=== PATIENT | female | born 1955 | race Caucasian/White ===

== ENCOUNTER 2018-01-22 06:31 | Day surgery (SDC) | payer OTHER ==
[2018-01-17 09:26] LABS: Absolute Lymphocytes (CBC) 1.7 K/uL (0.7-4.9); Absolute Monocytes 0.6 K/uL (0.1-1.3); Absolute Neutrophil 3.2 K/uL (1.8-8.0); Basophils % 1.3 % (0-1.3); Eosinophils % 4.9 % (0-4.4); Hematocrit 38.7 % (36.0-45.0); Lymphocytes % 29.1 % (15.3-44.8); MCH 31.5 pg (27.0-35.0); MCV 89.4 fL (80-100); MPV 7.9 fL (7.6-11.3); Monocytes % 9.7 % (3.3-12.3); RBC Red Blood Cell Count 4.33 M/uL (3.86-4.86)
[2018-01-17 09:28] LABS: Protime INR 0.96
[2018-01-17 09:38] LABS: BUN Blood Urea Nitrogen 14 mg/dL (7-18); Bicarbonate 29 mmol/L (21-32); Glucose Level 85 mg/dL (74-106); Potassium 3.9 mmol/L (3.5-5.1); Sodium Level 141 mmol/L (136-145)
--- NOTE | 2018-01-17 18:51 | EKG ---
Test Date: 2018-01-17 Test Time: 08:45:11 Eligibility Manager: LUIS MEASUREMENT RESULTS: Intervals: Rate: 58 WI: 178 QRSD: 80 QT: 422 QTc: 414 [place]: P: 58 WI: 178 QRS: 46 T: 71 INTERPRETIVE STATEMENTS: Sinus bradycardia Otherwise normal ECG Compared to ECG 10/04/2016 15:31:49 Sinus arrhythmia no longer present Electronically Signed On 01-17-18 18:47:36 CDT by Jonny Madden
[2018-01-22] MEDS ORDERED: CEFAZOLIN/SWI 1gm 1 GM/10 ML SYR ONE (07:02)
[2018-01-22] MEDS ORDERED: Ringers Lactate 1,000 ML IV ONE (07:02)
[2018-01-22] MEDS ORDERED: FENTANYL CITR 100 MCG/2 ML ONE ×2 (07:11→09:22)
[2018-01-22] MEDS ORDERED: PROPOFOL 200 MG/20 ML VIAL IV ONE (07:11)
[2018-01-22] MEDS ORDERED: LIDOCAINE 2% MPF 5 ML VIAL ONE ×2 (07:11→08:07)
[2018-01-22] MEDS ORDERED: MIDAZOLAM HCL 2 MG/2 ML INJ ONE (07:11)
[2018-01-22] MEDS: BUPIVACAINE 0.25% PF 10 ML VIAL ONE ×2 (08:07→08:32)
[2018-01-22] MEDS ORDERED: KETOROLAC 30 MG/ML INJ ONE (08:34)
[2018-01-22] MEDS ORDERED: GLYCOPYRROLATE 0.2 MG/ML SYR ONE (08:36)
--- NOTE | 2018-01-22 08:56 | P.BOP ---
Preoperative diagnosis: right knee medial meniscus tear, right knee osteoarthritis Postoperative diagnosis: same, right knee lateral meniscus tear Primary procedure: right knee arthroscopic partial medial and lateral meniscectomies Secondary procedure: right knee arthroscopic chondroplasty patellofemoral joint Intake Manager: NONE,NONE Estimated blood loss: < 5 cc Specimen: none Findings: see dictation Anesthesia: General Complications: None Implants: none Fluids & blood products: per anesthesia; TT: 33 mins @ 300 mmHg Transferred to: Recovery Room Condition: Good
[2018-01-22] MEDS ORDERED: MEPERIDINE HCL 50 MG/ML AMP ONE (09:10)
[2018-01-22] MEDS ORDERED: ONDANSETRON 4 MG/2 ML VIAL ONE (09:11)
[2018-01-22] MEDS ORDERED: METOCLOPRAMIDE 10 MG/2mL INJ ONE (09:11)
[2018-01-22] MEDS ORDERED: HYDROCODONE/APAP 7.5/325 MG TAB ONE (10:10)
--- NOTE | 2018-01-22 15:36 | OP ---
Date of Procedure: 01/20/2018 Surgeon: Joao Dyson MD Preoperative Diagnoses: 1.Right knee medial meniscus tear. 2.Right knee osteoarthritis. Postoperative Diagnoses: 1.Right knee medial meniscus tear. 2.Right knee osteoarthritis. 3.Right knee lateral meniscus tear. Procedure Performed: 1.Right knee arthroscopic partial medial and lateral meniscectomy. 2.Right knee arthroscopic chondroplasty, patellofemoral joint. Anesthesia: General LMA. Fluids: Per Anesthesia record. Estimated Blood Loss: Less than 5 cc. Tourniquet Time: 33 minutes, 300 mmHg. Complications: None. Implants: None. Indication For Procedure: Ania is a 62-year-old female, who presented to my clinic with signs and symptoms consistent with medial meniscus tear and right knee osteoarthritis. The patient failed con servative treatment measures including physical therapy, corticosteroid injection as well as viscosup plementation injection. She continued to have pain and mechanical symptoms. Discussed with the bianka ent at length the risks and benefits associated with operative and nonoperative treatment. She expre ssed understanding and elected to proceed with operative treatment. Description Of Procedure: After informed consent was obtained, the patient was identified in the pre operative holding area. The right lower extremity was marked. The patient was then taken back to e operating room, transferred to the operating table in the supine fashion, placed under general LMA anesthesia. The right lower extremity was examined. The patient had full range of motion of her rig ht lower extremity and was stable to varus and valgus, Bro, posterior drawer stresses. The right lower extremity was then prepped and draped in usual sterile fashion. A time-out was initiated. [facility] correct patient and procedure were confirmed and identified. The patient received preoperative pro phylactic antibiotics. The right lower extremity was then exsanguinated with an Esmarch. The tourni quet was inflated to 300 mmHg. Standard anteromedial and anterolateral portals were created and diag nostic arthroscopy was performed. The arthroscope was first brought into the patellofemoral joint, w here the patient was noted to have grade 4 chondromalacia changes of the medial aspect of the trochle ar groove as well as the medial facet of the patella. There were some loose chondral flaps and a cho ndroplasty was performed using an arthroscopic shaver to smooth chondral edges. The arthroscope was then brought into the medial compartment, where the patient was noted to have some grade 4 changes of the medial tibial plateau just right above the anterior aspect of the medial meniscus. There was no lydia to be a complex medial meniscus tear at the medial meniscus body. Partial medial meniscectomy wa s performed using meniscal biters and arthroscopic shaver to smooth meniscal borders. The arthroscop e was then brought into the intercondylar notch , where the patient was noted to have intact ACL and PCL, which were stable to probe. The arthroscope was then brought into the lateral compartment, wher e the patient was noted to have some fraying and a small tear of the lateral meniscus body. Using ar throscopic shaver, partial lateral meniscectomy was performed to smooth meniscal borders. There were some grade 2 chondromalacia changes of the lateral tibial plateau and lateral femoral condyle. The arthroscope was then removed and instruments were removed without complication. The portals were irr igated with normal saline and approximated using a 3-0 Monocryl. Sterile dressings were applied. To urniquet was let down and the patient was awakened and transferred to PACU in stable condition. Postoperative Plan: Ms. Humphries will follow up clinic next week for wound check and will begin physical therapy per post meniscectomy protocol. MELI/MODL Voice ID: [id number] Report ID: [id number]
== END 2018-01-22 11:05 | disposition home or self-care (01) ==
LOC: OR 06:31
PROVIDERS: ATTEND Orthopaedic Surgery Sports Medicine
PROC: 0SBC4ZZ Excision of Right Knee Joint, Percutaneous Endoscopic Approach (ICD-10-PCS; 2018-01-22)
PROC: 0SBC4ZZ Excision of Right Knee Joint, Percutaneous Endoscopic Approach (ICD-10-PCS; 2018-01-22)
PROC: 0SBC4ZZ Excision of Right Knee Joint, Percutaneous Endoscopic Approach (ICD-10-PCS; 2018-01-22)
PROC: 0SBC4ZZ Excision of Right Knee Joint, Percutaneous Endoscopic Approach (ICD-10-PCS; principal; 2018-01-22 07:30)
DX: S83.231A Complex tear of medial meniscus, current injury, right knee, initial encounter (principal); M17.11 Unilateral primary osteoarthritis, right knee; X58.XXXA Exposure to other specified factors, initial encounter; Y93.9 Activity, unspecified; Y92.9 Unspecified place or not applicable
CPT/HCPCS: 36415; 80048; 85025; 85610; 85730; 93005; J0690; J2175; J2250; J2405; J2765; J3010

== ENCOUNTER 2018-12-24 06:03 | Inpatient (IN) | payer BC ==
[2018-12-17 14:52] LABS: Absolute Lymphocytes (CBC) 2.2 K/uL (0.7-4.9); Basophils % 0.9 % (0-1.3); Eosinophils % 3.2 % (0-4.4); Hematocrit 37.8 % (36.0-45.0); Lymphocytes % 29.9 % (15.3-44.8); MPV 8.1 fL (7.6-11.3); Monocytes % 8.9 % (3.3-12.3); RBC Red Blood Cell Count 4.15 M/uL (3.86-4.86)
[2018-12-17 15:02] LABS: Bilirubin Total 0.2 mg/dL (0.2-1.0); Potassium 3.4 mmol/L (3.5-5.1); Protein, Total 7.1 g/dL (6.4-8.2)
--- NOTE | 2018-12-17 16:22 | EKG ---
Test Date: 2018-12-17 Test Time: 13:22:39 Gateman: LUIS MEASUREMENT RESULTS: Intervals: Rate: 59 HI: 164 QRSD: 74 QT: 432 QTc: 427 [place]: P: 58 HI: 164 QRS: 55 T: 64 INTERPRETIVE STATEMENTS: Sinus bradycardia Otherwise normal ECG Compared to ECG 01/17/2018 08:45:11 No significant changes Electronically Signed On 12-17-18 16:21:24 CDT by Tomi Payne
--- OUTSIDE RECORDS SUMMARY | 2018-12-24 06:07 | XMS REPORT ---
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 unspecified upper limb, including shoulder Problem Primary osteoarthritis of right M17.11 Active knee Assessment Complex tear of medial meniscus of S83.231A Active right knee as current injury, initial encounter Assessment Acute pain of right knee M25.561 Active Assessment Primary osteoarthritis of right M17.11 Active knee Medications Medication Code System Code Instructions Start Date End Date Status Dosage ZyrTEC [facility] 72625752228 10 MG Orally Once Active 1 tablet a day Xanax [facility] 34639370396 0.25 MG Orally Active 1 tablet Twice a day Results No Known Results Summary Purpose eClinicalWorks Submission
--- OUTSIDE RECORDS SUMMARY | 2018-12-24 06:07 | XMS REPORT ---
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 unspecified upper limb, including shoulder Problem Primary osteoarthritis of right M17.11 Active knee Assessment Primary osteoarthritis of right M17.11 Active knee Assessment Other tear of medial meniscus, S83.241A Active current injury, right knee, initial encounter Assessment Acute pain of right knee M25.561 Active Medications Medication Code Code Instructions Start End Status Dosage System Date Date [facility] 8[facility] 10 MG Orally Active 1 tablet Once a day Hydrocodone-Ac [facility] [address]-26 7.5-750 MG Active as directed etaminophen Orally Tramadol HCl [facility] 53031297837 50 MG Orally January 27, Feb 06, Active 1 tablet as every 6 hrs 2017 2018 needed Xanax [facility] 73509154327 0.25 MG Orally Active 1 tablet Twice a day Results No Known Results Summary Purpose eClinicalWorks Submission
--- OUTSIDE RECORDS SUMMARY | 2018-12-24 06:08 | XMS REPORT ---
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
--- OUTSIDE RECORDS SUMMARY | 2018-12-24 06:08 | XMS REPORT ---
:1955 Author Organization eClinicalWorks Care Team Providers Name Role Phone Joao Dyson Provider Role Unavailable Allergies, Adverse Reactions, Alerts Substance Reaction Event Type MORPHINE Info Not Available Drug Allergy Clarithromycin Info Not Available Drug Allergy Biaxin Info Not Available Drug Allergy Problems Problem Type Condition Code Onset Dates Condition Status Assessment Other tear of medial meniscus, S83.241D Active current injury, right knee, subsequent encounter Assessment Acute pain of right knee M25.561 Active Assessment Patellar tendinitis of right knee M76.51 Active Assessment Primary osteoarthritis of right M17.11 Active knee Problem Acute pain of right knee M25.561 Active Problem Patellar tendinitis of right knee M76.51 Active Problem Other tear of medial meniscus, S83.241D Active current injury, right knee, subsequent encounter Problem Other benign neoplasm of skin of D23.60 Active unspecified upper limb, including shoulder Problem Primary osteoarthritis of right M17.11 Active knee Problem Skin lesion of back L98.9 Active Medications Medication Code Code Instructions Start End Status Dosage System Date Date Ebonien [facility] 11812840328 1 % Transdermal Mar 18, apply small qid 2018 amount to affected joint Valtrex [facility] 03614541492 500 MG Orally Active 1 tablet Once a day ZyrTEC [facility] 99769627571 10 MG Orally Active 1 tablet Once a day Xanax [facility] 00700251636 0.25 MG Orally Active 1 tablet Twice a day Hydrocodone-Ac [facility] [address]-46 7.5-750 MG Active as directed etaminophen Orally Results No Known Results Summary Purpose eClinicalWorks Submission
--- OUTSIDE RECORDS SUMMARY | 2018-12-24 06:08 | XMS REPORT ---
:1955 Author Organization eClinicalWorks Care Team Providers Name Role Phone Joao Dyson Provider Role Unavailable Allergies No Known Allergies [...] of back L98.9 Active Medications Medication Code System Code Instructions Start End Date Status Dosage Date Hilliard [facility] 94209268366 7.5-325 MG Orally December 16December 26, Active 1 tablet every 6 hrs 2018 2018 as needed Xarelto [facility] 69918543286 10 MG Orally Once December 16, Active 1 tablet a day 2018 with food Results No Known Results Summary Purpose eClinicalWorks Submission
--- OUTSIDE RECORDS SUMMARY | 2018-12-24 06:08 | XMS REPORT ---
:1955 Author Organization eClinicalWorks Care Team Providers Name Role Phone Joao Dyson Provider Role Unavailable Allergies, Adverse Reactions, Alerts Substance Reaction Event Type MORPHINE Info Not Available Drug Allergy Clarithromycin Info Not Available Drug Allergy Biaxin Info Not Available Drug Allergy Problems Problem Type Condition Code Onset Dates Condition Status Assessment Primary osteoarthritis of right M17.11 Active [...] Start End Status Dosage System Date Date Hydrocodone-Ac [facility] [address]-22 7.5-750 MG Active as directed etaminophen Orally Voltaren [facility] 45120723487 1 % Transdermal Mar 18, apply small qid 2018 amount to affected joint ZyrTEC [facility] 05241675857 10 MG Orally Active 1 tablet Once a day Xanax [facility] 87183092469 0.25 MG Orally Active 1 tablet Twice a day Valtrex [facility] 53616288649 500 MG Orally Active 1 tablet Once a day Results No Known Results Summary Purpose eClinicalWorks Submission
--- OUTSIDE RECORDS SUMMARY | 2018-12-24 06:08 | XMS REPORT ---
[...] osteoarthritis of right M17.11 Active knee Assessment Patellar tendinitis of right knee M76.51 Active Assessment Other tear of medial meniscus, S83.241D Active current injury, right knee, subsequent encounter Assessment Acute pain of right knee M25.561 Active Medications Medication Code Code Instructions Start End Status Dosage System Date Date Valtrex [facility] 64432933428 500 MG Orally Active 1 tablet Once a day ZyrTEC [facility] 51710163951 10 MG Orally Active 1 tablet Once a day Hydrocodone-Ac [facility] [address]-71 7.5-750 MG Active as directed etaminophen Orally Xanax [facility] 38809153949 0.25 MG Orally Active 1 tablet Twice a day Results No Known Results Summary Purpose eClinicalWorks Submission
--- OUTSIDE RECORDS SUMMARY | 2018-12-24 06:08 | XMS REPORT ---
[...] osteoarthritis of right M17.11 Active knee Assessment Arthritis of knee, right M17.11 Active Assessment Other tear of medial meniscus, S83.241A Active current injury, right knee, initial encounter Assessment Acute pain of right knee M25.561 Active Medications Medication Code Code Instructions Start End Status Dosage System Date Date ZyrTEC [facility] 68558659038 10 MG Orally Active 1 tablet Once a day Hydrocodone-Ac [facility] [address]-76 7.5-750 MG Active as directed etaminophen Orally Xanax [facility] 65988077999 0.25 MG Orally Active 1 tablet Twice a day Valtrex [facility] 80623658923 500 MG Orally Active 1 tablet Once a day Results No Known Results Summary Purpose eClinicalWorks Submission
--- OUTSIDE RECORDS SUMMARY | 2018-12-24 06:08 | XMS REPORT ---
:1955 Author Organization eClinicalWorks Care Team Providers Name Role Phone Joao Dyson Provider Role Unavailable Allergies, Adverse Reactions, Alerts Substance Reaction Event Type MORPHINE Info Not Available Drug Allergy Clarithromycin Info Not Available Drug Allergy Biaxin Info Not Available Drug Allergy Problems Problem Type Condition Code Onset Dates Condition Status Assessment Pain in joint of right knee M25.561 Active Assessment Primary [...] Medications Medication Code Code Instructions Start End Date Status Dosage System Date ZyrTEC [facility] 50689872736 10 MG Orally Active 1 tablet Once a day Voltaren [facility] 35060580472 1 % Transdermal Mar 18, apply small qid 2018 amount to affected joint Xanax [facility] 93986661694 0.25 MG Orally Active 1 tablet Twice a day Valtrex [facility] 04459743734 500 MG Orally Active 1 tablet Once a day Results No Known Results Summary Purpose eClinicalWorks Submission
--- OUTSIDE RECORDS SUMMARY | 2018-12-24 06:08 | XMS REPORT ---
:1955 Author Organization eClinicalWorks Care Team Providers Name Role Phone Joao Dyson Provider Role Unavailable Allergies No Known Allergies Problems Problem Type Condition Code Onset Dates Condition Status Problem Skin lesion of back L98.9 Active Problem Other benign neoplasm of skin of D23.60 Active unspecified upper limb, including shoulder Problem Primary osteoarthritis of right knee M17.11 Active Medications Medication Code Code Instructions Start End Date Status Dosage System Date [facility] 19057999771 1 % Transdermal Mar 18 apply small qid 2018 amount to affected joint Results No Known Results Summary Purpose eClinicalWorks Submission
--- OUTSIDE RECORDS SUMMARY | 2018-12-24 06:08 | XMS REPORT ---
[...] Instructions Start End Date Status Dosage Date Valtrex ND 55777974684 500 MG Orally Active 1 tablet Once a day ZyrTEC ND 09809863050 10 MG Orally Active 1 tablet Once a day Zoloft [place] 0 Active not defined Results No Known Results Summary Purpose eClinicalWorks Submission
--- OUTSIDE RECORDS SUMMARY | 2018-12-24 06:08 | XMS REPORT ---
[...] Start End Date Status Dosage System Date Xanax [facility] 79694515550 0.25 MG Orally Active 1 tablet Twice a day Voltaren [facility] 16986218646 1 % Transdermal Mar 18, Active apply small qid 2018 amount to affected joint Valtrex [facility] 76059385933 500 MG Orally Active 1 tablet Once a day ZyrTEC [facility] 55572654606 10 MG Orally Active 1 tablet Once a day Results No Known Results Summary Purpose eClinicalWorks Submission
[2018-12-24] MEDS ORDERED: CEFAZOLIN/SWI 2gm 2 GM/20 ML SYR ONE (06:30)
[2018-12-24] MEDS ORDERED: Ringers Lactate 1,000 ML IV ONE ×3 (06:30→07:10)
[2018-12-24 06:52] LABS: Protime INR 0.98
[2018-12-24] MEDS ORDERED: FENTANYL CITR 250 MCG/5 ML ONE (07:13)
[2018-12-24] MEDS ORDERED: MIDAZOLAM HCL 2 MG/2 ML INJ ONE (07:13)
[2018-12-24] MEDS ORDERED: LIDOCAINE 2% MPF 5 ML VIAL ONE (07:13)
[2018-12-24] MEDS ORDERED: PROPOFOL 200 MG/20 ML VIAL IV ONE (07:13)
[2018-12-24] MEDS ORDERED: DEXAMETHASONE 4 MG/ML VIAL ONE (07:18)
[2018-12-24] MEDS ORDERED: ROPLVACAINE HCL 20 ML ONE (07:18)
[2018-12-24] MEDS ORDERED: EPINEPHRINE/PF 1 MG/ML AMP ONE (07:18)
[2018-12-24] MEDS ORDERED: TRANEXAMIC ACID 1,000 MG in NA CHLORIDE 0.9% 50 ML IV ONE (08:00)
[2018-12-24] MEDS: BUPIVACA 0.5%/EPI 0.0005%/PF 30 ML VIAL ONE ×2 (08:31→09:35)
[2018-12-24] MEDS ORDERED: KETOROLAC 30 MG/ML INJ ONE (09:57)
[2018-12-24] MEDS ORDERED: ALPRAZOLAM 0.25 MG TABLET PO PRN (10:33)
[2018-12-24] MEDS ORDERED: DOCUSATE NA 100 MG CAP PO PRN (10:36)
[2018-12-24] MEDS ORDERED: ONDANSETRON 4 MG/2 ML VIAL IV PRN (10:36)
[2018-12-24] MEDS: FENTANYL CITR 100 MCG/2 ML ONE ×2 (11:04→11:25)
--- NOTE | 2018-12-24 11:37 | RAD REPORT ---
EXAM DESCRIPTION: RAD - Knee Right 2 View - 12/24/2018 11:27 am CLINICAL HISTORY: Right knee surgery FINDINGS: Postsurgical changes of a right knee arthroplasty. Prosthesis is in good position No fracture or dislocation
[2018-12-24 11:43] LABS: Hematocrit 40.2 % (36.0-45.0)
[2018-12-24] MEDS: HYDROMORPHONE HCL 0.5 MG/0.5 ML INJ IV PRN (12:29)
--- NOTE | 2018-12-24 13:57 | P.BOP ---
Preoperative diagnosis: right knee osteoarthritis Postoperative diagnosis: same Primary procedure: right total knee arthroplasty Physician Primary Care Sports Medicine: NONE,NONE Estimated blood loss: 20 cc Specimen: right knee bone remnants Findings: see dictation Anesthesia: General Complications: None Drain(s): Urinary catheter Implants: Pili Persona, 7 Narrow CR femur, D tibia, 10 CR poly, 32 patella Fluids & blood products: per anesthesia record; TT: 95 mins @ 300 mmHg Transferred to: Recovery Room Condition: Good
[2018-12-24] MEDS: HYDROCODONE/APAP 7.5/325 MG TAB PO PRN ×2 (14:56→20:12)
[2018-12-24] MEDS: CEFAZOLIN/SWI 2gm 2 GM/20 ML SYR IV SCH (16:28)
[2018-12-24] MEDS: TRAMADOL HCL 50 MG TAB PO PRN ×2 (17:53→23:55)
--- NOTE | 2018-12-24 22:06 | P.OP ---
Preoperative diagnosis: right knee osteoarthritis Postoperative diagnosis: same Primary procedure: right total knee arthroplasty Anesthesia: general Estimated blood loss: 20 cc Specimen: right knee bone remnants Findings: see dictation Operative Technique: Indication For Procedure: Ania is a 63-year-old female, who presented to my clinic with right knee pain due to right knee osteoarthritis. The patient failed conservative treatment measures including home exercises, corticosteroid injections and viscosupplementation injections. She reported continued pain that affect her activities of daily living. She was recommended for total knee arthoplasty. Description Of Procedure: After informed consent was obtained, the patient was identified in preop holding area. The right lower extremity was marked. The patient underwent a femoral nerve block performed by Anesthesia. She was then taken back to the operative room and transferred to the operating table in supine fashion and placed under general anesthesia. The right lower extremity was then prepped and draped in usual sterile fashion. A time-out was initiated. Correct patient and procedure were confirmed and identified. The patient had received preoperative prophylactic antibiotics. The right lower extremity was exsanguinated and the tourniquet was inflated to 300 mmHg. Approximately, a 20 cm longitudinal incision was made over the anterior aspect of the knee centered over the patella. A standard median parapatellar approach was taken. The dissection was taken to the extensor mechanism. A median parapatellar arthrotomy was then performed. The patella was then everted and the fat pad and medial and lateral meniscus were excised. A lateral release was performed of the patella and osteophytes were removed using a rongeur. There was significant cartilage wear on the undersurface of the patella and it was decided to resurface the patella. Next, attention was taken to the femur, retractors were placed within the knee and the knee was held in flexion. A partial synovectomy was performed over the anterior aspect of the distal femur. A cutting block has been created preoperatively using MRI imaging and the block was then placed over the distal femur and then positioned and was stacked into place and pins were placed within the guide hole in the block. The distal femoral cutting guide was then placed over the pre-placed guide pin and the distal femur was cut after proper confirming using an Ray wing. After this was performed, the anterior-posterior distal femoral cuts were made as well as the chamfer cut without complication. MCL and lateral collateral were protected as well as patellar tendon with knee retractors. Bone remnants were then removed and sent to Pathology. Next attention was taken to the proximal tibia. The soft tissue medially was then elevated off the proximal tibia directly off bone using Bovie electrocautery. Pre-made cutting block was placed over the proximal tibia and once locked into position, pin were placed as well as the alignment jo was used to ensure proper placement of the cutting guide. There was overall good alignment and position of the cutting guide. Pins were then placed. The cutting block was removed. The cutting guide was placed on the proximal tibia and again the ray wing was then used to ensure proper depth of the cut. An osteotome then used to make cuts around the PCL and the saw was used to cut the proximal tibia and the proximal tibial cut was then removed with the meniscal grasper. Bone fragments were then removed and meniscectomies were completed. Next, the knee was held in 90 degrees of flexion and forward extension and a 10-mm guide was then selected and there was good overall fit and stability in flexion and extension. Next, the trials were placed, size 7 Narrow CR standard femur was placed and a size D tibia with a 10 mm poly. The knee was then ranged and had good stability, both in forward flexion and extension and had full range of motion. The knee was ranged and there was good stability of the patella as well as the rest of the knee. The tibia was marked with the Bovie electrocautery. The femur was drilled and once in proper position and the tibia was punched. Next attention was taken to the patella. The patellar thickness was measured and a size 32 patella was selected. The patella was cut and drilled. The knee was again ranged with all trial implants and there was good stabiity. Trial implants were then removed. The knee was then irrigated thoroughly with pulsed lavage normal saline. A 0.5% Marcaine with epinephrine was then used 30 cc for local anesthetic and to aid with postoperative pain control. The cement was prepared as well as the implant. Size D tibia was then placed followed by the size 7 Narrow CR femur and size 32 patella. Excess cement was then removed using [place] elevator. A 10- mm trial poly was then placed and the knee was held in full extension as the cement hardened. Once the cement was completely hardened, the knee was ranged with good overall stability as well as good flexion and extension. Trial poly ethylene liner was removed and a final 10 mm CR poly was placed and locked in position. The knee was again irrigated thoroughly with normal saline. The tourniquet was let down. Hemostasis was achieved with Bovie electrocautery. The extensor mechanism was closed with #1 Vicryl in an interrupted fashion followed by #1 Vicryl in a running fashion. Fascia was then approximated using 0 Vicryl. Subcutaneous tissue was approximated used 2-0 Vicryl and the skin was approximated using a skin staple. Sterile dressings were applied. The patient was awakened and transferred to PACU in stable condition. Postoperative Plan: She will be weightbearing as tolerated. Physical therapy will be consulted to aid with mobilization and she will be admitted for pain management and blood pressure monitoring given her history of hypotension. She will stay at least 2 midnights while in the hospital. CPM machine will be placed in the PACU postoperatively. Complications: None Drain(s): Urinary catheter Implants: Pili Persona, 7 Narrow CR Femur, D Tibia, 10 CR poly, 32 patella Fluids & blood products: per anesthesia record; TT: 95 mins @ 300 mmHg Transferred to: Recovery Room Condition: Good
[2018-12-25] MEDS: HYDROMORPHONE HCL 0.5 MG/0.5 ML INJ IV PRN ×5 (00:34→21:26)
[2018-12-25] MEDS: CEFAZOLIN/SWI 2gm 2 GM/20 ML SYR IV SCH ×2 (00:38→08:14)
[2018-12-25] MEDS: HYDROCODONE/APAP 7.5/325 MG TAB PO PRN ×4 (02:10→15:08)
[2018-12-25] MEDS: TRAMADOL HCL 50 MG TAB PO PRN ×3 (04:29→16:12)
[2018-12-25] MEDS: ENOXAPARIN 30 MG/0.3 ML SQ SCH ×2 (06:13→17:37)
[2018-12-25 06:32] LABS: BUN Blood Urea Nitrogen 7 mg/dL (7-18); Bicarbonate 31 mmol/L (21-32); Glucose Level 114 mg/dL (74-106); Sodium Level 142 mmol/L (136-145)
[2018-12-25 06:33] LABS: Absolute Lymphocytes (CBC) 1.7 K/uL (0.7-4.9); Basophils % 0.6 % (0-1.3); Eosinophils % 0.3 % (0-4.4); Hematocrit 32.9 % (36.0-45.0); Lymphocytes % 16.7 % (15.3-44.8); MPV 8.1 fL (7.6-11.3); Monocytes % 12.5 % (3.3-12.3); RBC Red Blood Cell Count 3.64 M/uL (3.86-4.86)
--- NOTE | 2018-12-25 08:03 | P.PN ---
Subjective Date of Service: 12/25/18 Chief Complaint: s/p L TKA some breakthrough pain overnight as block wore off Physical Examination - Vital Signs Temperature: 97.6 F Blood Pressure: 124/68 Pulse: 81 Respirations: 18 Pulse Ox (%): 98 - Physical Exam General: Alert, In no apparent distress Musculoskeletal: Other (RLE: dressing c/d/i; NVI distally) - Studies Laboratory Data (last 24 hrs) 12/25/18 05:48: Sodium 142, Potassium 4.0, BUN 7, Creatinine 0.58, Glucose 114 H 12/25/18 05:48: WBC 10.3 D, Hgb 11.9 L, Hct 32.9 L D, Plt Count 253 12/24/18 11:16: Hgb 13.6, Hct 40.2 Assessment And Plan - Plan Ania is a 63 yo female s/p R TKA POD#1 -d/c josé antonio today -PT to mobilize today; WBAT RLE -pain control with [place], tramadol -lovenox for DVT prophylaxis -blood pressure remaining stable
[2018-12-25] MEDS: CELECOXIB 100 MG CAPSULE PO SCH (08:10)
[2018-12-25] MEDS: LYSINE 1000 MG PO SCH (08:13)
[2018-12-25] MEDS ORDERED: SERTRALINE HCL 50 MG TAB PO SCH ×2 (09:00→21:00)
[2018-12-25] MEDS ORDERED: MONTELUKAST 10 MG TAB PO SCH ×2 (09:00→21:00)
--- NOTE | 2018-12-25 16:01 | RAD REPORT ---
EXAM DESCRIPTION: RAD - Knee Right 2 View - 12/25/2018 3:55 pm CLINICAL HISTORY: Right knee FINDINGS: No fracture or dislocation No evidence of loosening of right knee prosthesis
[2018-12-26] MEDS: HYDROCODONE/APAP 7.5/325 MG TAB PO PRN ×3 (00:01→11:40)
[2018-12-26] MEDS: TRAMADOL HCL 50 MG TAB PO PRN ×2 (04:46→10:52)
[2018-12-26] MEDS: ENOXAPARIN 30 MG/0.3 ML SQ SCH (04:47)
[2018-12-26] MEDS: LYSINE 1000 MG PO SCH (09:00)
[2018-12-26] MEDS: CELECOXIB 100 MG CAPSULE PO SCH (09:20)
--- NOTE | 2018-12-26 11:34 | P.PN ---
Date of Service: 12/25/18 Was called from patient's nurse on 12/25/2018 at 15:18 and informed that she had a fall in the bathroom. She did not hit her head and reports flexing her knee with increased pain. Xray of the right knee was ordered and it was negative for fracture and negative for hardware loosening. I examined the patient an hour later and she had ROM of the right knee without pain and no instability with varus/valgus stresses and NVI. She may continue with PT and be WBAT.
--- NOTE | 2018-12-26 11:38 | P.DS ---
Admission Date: 12/24/18 Discharge Date: 12/26/18 Disposition: DC HOME/HOME HEALTH CARE Discharge Condition: GOOD Reason for Admission: s/p L TKA Procedures: R TKA Brief History of Present Illness: Ania is a 63 yo female with right knee OA and underwent R TKA on 12/24/2018 without complication and she was admitted to floor postoperatively. Hospital Course: Ania underwent R TKA on 12/25/2018 without complication and was admitted to the floor. She has history of hypotension and her blood pressure was monitored during admission. Her vital signs remained stable. On 12/25/2018 I was informed that she had a fall in the bathroom and she was trying to clean herself. She did not hit her head and reports flexing her knee with increased pain. Xray of the right knee was ordered and it was negative for fracture and negative for hardware loosening. She was examined and had ROM of the right knee without pain and no instability with varus/valgus stresses and NVI. She continued with PT and was WBAT and did well. She was stable for discharge on . She will continue with DVT prophylaxis at home using Xarelto. Vital Signs/Physical Exam: Temp Pulse Resp BP Pulse Ox 98.0 F 75 16 135/67 94 12/26/18 08:00 12/26/18 08:00 12/26/18 08:00 12/26/18 08:00 12/26/18 08:00 Laboratory Data at Discharge: WBC 10.3 K/uL (4.3-10.9) D 12/25/18 05:48 Hgb 11.9 g/dL (12.0-15.0) L 12/25/18 05:48 Hct 32.9 % (36.0-45.0) L D 12/25/18 05:48 Plt Count 253 K/uL (152-406) 12/25/18 05:48 PT 11.6 SECONDS (9.5-12.5) 12/24/18 06:32 INR 0.98 12/24/18 06:32 APTT 31.4 SECONDS (24.3-36.9) 12/17/18 13:25 Sodium 142 mmol/L (136-145) 12/25/18 05:48 Potassium 4.0 mmol/L (3.5-5.1) 12/25/18 05:48 BUN 7 mg/dL (7-18) 12/25/18 05:48 Creatinine 0.58 mg/dL (0.55-1.3) 12/25/18 05:48 Glucose 114 mg/dL (74-106) H 12/25/18 05:48 Total Bilirubin 0.2 mg/dL (0.2-1.0) 12/17/18 13:25 AST 15 U/L (15-37) 12/17/18 13:25 ALT 26 U/L (12-78) 12/17/18 13:25 Alkaline Phosphatase 60 U/L (45-117) 12/17/18 13:25 Home Medications: Alprazolam [Xanax] 0.25 mg PO TIDP PRN 01/17/18 Lysine 1,000 mg PO DAILY 01/17/18 Montelukast [Singulair*] 10 mg PO DAILY 01/17/18 Sertraline HCl 50 mg PO DAILY 01/17/18 Hydrocodone 7.5/APAP 325 [[place] 7.5/325 mg*] 1 tab PO Q4H PRN tab 12/26/18 traMADol HCL [Ultram*] 50 mg PO Q6H PRN tab 12/26/18 Patient Discharge Instructions: keep dressing c/d/i; change dressing to right knee on Saturday with new aquacel bandage; start Xarelto tomorrow 12/27/2018 with breakfast Diet: Regular Activity: Weight bearing as tolerated Followup: Joao Dyson MD [ACTIVE - CAN ADMIT] -
== END 2018-12-26 12:00 | disposition home health service (06) | DRG 470 ==
LOC: OR 06:03 → 2ND 10:36 → 4TH 12-25 20:45
PROVIDERS: ADMIT Orthopaedic Surgery Sports Medicine; ATTEND Orthopaedic Surgery Sports Medicine
PROC: 0SRC0J9 Replacement of Right Knee Joint with Synthetic Substitute, Cemented, Open Approach (ICD-10-PCS; principal; 2018-12-24 07:30)
DX: M17.11 Unilateral primary osteoarthritis, right knee (principal); Z88.1 Allergy status to other antibiotic agents; Z88.5 Allergy status to narcotic agent; Z91.013 Allergy to seafood
CPT/HCPCS: 36415; 80048; 80053; 85014; 85018; 85025; 85610; 85730; 88304; 88305; 88311; 93005; 97110; 97116; 97139; 97163; 97530; J0171; J0690; J1170; J1650; J2250; J2704; J2795; J3010

== ENCOUNTER 2021-11-06 09:24 | Day surgery (SDC) | payer BC ==
[2021-11-06] MEDS ORDERED: Ringers Lactate 1,000 ML IV ONE ×2 (09:39→13:37)
[2021-11-06] MEDS ORDERED: propofoL 200 MG/20 ML VIAL IV ONE (10:26)
[2021-11-06] MEDS ORDERED: ONDANSETRON 4 MG/2 ML VIAL ONE (10:27)
[2021-11-06] MEDS ORDERED: MIDAZOLAM HCL 2 MG/2 ML INJ ONE (10:27)
[2021-11-06] MEDS ORDERED: dexAMETHasone 10 MG/ML VIAL ONE (10:27)
[2021-11-06] MEDS ORDERED: FENTANYL CITR 250 MCG/5 ML ONE (10:27)
[2021-11-06] MEDS ORDERED: LIDOCAINE 2% MPF 5 ML VIAL ONE (10:27)
[2021-11-06] MEDS ORDERED: ROCURONIUM 50 MG/5 ML VIAL IV ONE (10:27)
[2021-11-06] MEDS ORDERED: OXYMETAZOLINE HCL 0.05% 15ML NAS ONE (10:39)
[2021-11-06] MEDS ORDERED: LIDOCAINE 1% W/EPI 1:100,000 10 ML VIAL ONE ×2 (10:39→12:15)
[2021-11-06] MEDS ORDERED: NA CHLORIDE 0.9% 500 ML ONE (10:45)
[2021-11-06] MEDS ORDERED: NA CHLORIDE 0.9% 250 ML ONE ×2 (10:45→12:44)
[2021-11-06] MEDS ORDERED: CELECOXIB 100 MG CAPSULE ONE (11:09)
[2021-11-06] MEDS ORDERED: ACETAMINOPHEN 500 MG TAB ONE (11:10)
[2021-11-06] MEDS ORDERED: GLYCOPYRROLATE 0.2 MG/ML SYR ONE (11:34)
[2021-11-06] MEDS ORDERED: HYDRALAZINE HCL 20 MG/ML VIAL ONE (12:36)
[2021-11-06] MEDS ORDERED: BACITRACIN OINTMENT 14 GM TUBE TOP ONE (12:49)
[2021-11-06] MEDS ORDERED: FENTANYL CITR 100 MCG/2 ML ONE (12:51)
[2021-11-06] MEDS ORDERED: NALOXONE 0.4 MG/ML VIAL ONE (13:20)
[2021-11-06] MEDS ORDERED: HYDROMORPHONE HCL 1 MG/ML INJ ONE (14:08)
[2021-11-06 15:00] VITALS: BP 139/71; TEMP 96.9
[2021-11-06 15:19] VITALS: O2SAT 95
[2021-11-06] MEDS ORDERED: TRAMADOL HCL 50 MG TAB ONE (15:21)
--- NOTE | 2021-11-07 01:42 | OP ---
Date of Procedure: 11/06/2021 Surgeon: JUAN VALENTINO Preoperative Diagnoses: 1.Chronic pansinusitis. 2.Bilateral nasal septal deviation. 3.Bilateral nasal valve collapse. Postoperative Diagnoses: 1.Chronic pansinusitis. 2.Bilateral nasal septal deviation. 3.Bilateral nasal valve collapse. Procedure: 1.Bilateral diagnostic sinus endoscopy with CT image guidance. 2.Bilateral sphenoid, maxillary, frontal balloon sinuplasty. 3.Septoplasty. 4.Bilateral anterior ethmoidectomies. 5.Bilateral nasal valve remodeling with radiofrequency ablation device. Anesthesia: General endotracheal anesthesia was administered. I also infiltrated approximately 10 m L of 1% lidocaine with 1:100,000 epinephrine into bilateral nasal septal mucosa and mucosa of bilater al middle turbinate axilla and bilateral uncinate processes. Afrin-soaked nasal pledgets were used for vasoconstriction and decongestion. Estimated Blood Loss: Approximately 10 to 20 mL. Specimens: Nasal septal cartilage and bone submitted to pathology. Findings: Bilateral nasal septal spur, bilateral stenotic ostial openings involving maxillary, sphen oid, frontal sinuses; bilateral internal nasal valve collapse; bilateral ethmoid bulla inflammation a nd mucosal disease. Complications: None. Disposition: Stable. The patient tolerated the procedure well. Indication For Procedure: The patient is a pleasant 66-year-old female who has been experiencing mul tiple years of chronic sinusitis involving all sinuses, which was confirmed on a recent CT scan of th e sinuses. She has been on multiple rounds of antibiotics as well as nasal corticosteroid sprays and decongestants with little to no improvement in her symptoms, which include bilateral cheek and foreh ead pain, pressure, nasal congestion resulting in severe obstruction with inability to breathe throug h her nose. These were indications to bring the patient to proceed for the above-mentioned procedure s. She understood and all questions were answered. Risks versus benefits and complications were exp lained in detail and a consent form was signed which was placed in the chart. Description Of Procedure: The patient was transferred from the preoperative holding area to the oper ative suite by Department of Anesthesia, placed on the operating table supine, sedated and intubated in normal fashion. Table was rotated to 180 degrees and a head rest was placed. The patient was nitza ibrated to the CT image guidance machine and all parameters were checked and registered and appropria tely calibrated to her anatomy. The patient was then prepped and draped. I infiltrated approximatel y 85 mL of 1% lidocaine with 1:100,000 epinephrine into bilateral nasal septal mucosa and then insert ed Afrin-soaked nasal pledgets. The patient was allowed to sit for approximately 5 minutes or so and then the pledgets were removed and I inserted a 0-degree rigid nasal endoscope bilaterally along the floor. The patient had a mid septal right superior septal spur and a caudal spur involving the left anterior septum. I infiltrated additional 5 mL of 1% lidocaine with 1:100,000 epinephrine into bila teral maxillary turbinate axilla and uncinate process mucosa. We started with sphenoid balloons whic h were inserted into the ostial openings. Once it was confirmed with the image guidance, and then we inflated twice to 12 mmHg to each sphenoid sinus opening and then deflated the balloon and removed i t. Next, attention was placed to the bilateral frontal sinuses and frontal recesses which were somew hat stenotic. Once we were able to confirm placement of the probe, then we inserted the balloon into the opening and inflated to 12 mmHg twice and then deflated the balloon and removed it. Next, we lo cated bilateral maxillary sinus openings with the probe and inserted the balloon into the maxillary s inus ostial openings and inflated twice to 12 mmHg and then deflated the balloon and then while the c atheter was then placed, we lavaged bilateral maxillary sinuses with approximately 40 to 60 mL of tomasa rile saline and then removed the saline and removed the probe. Next, our attention was placed to the septum in which several incisions were made over the septal spu rs to remove them. We used a sickle knife to incise the mucosa and then isolated the cartilage bone and removed the septal spurs with Efren forceps. I then performed bilaterally anterior ethmoidec temo in that both below were stenotic and partially obstructing the ostiomeatal complex. I used a 4. 3 microdebrider blade on the setting of 3000 rpm to perform the anterior ethmoidectomies. Once the m ucosal disease was removed, I then placed my attention to bilateral nasal valves. I used a radiofrNumerate uency ablation device on ablation of 5 and 3 of coagulation to perform nasal valve remodeling bilater ally and repair of bilateral internal nasal valves. I then reapproximated the nasal septal mucosa wi th 4-0 plain gut suture in a continuous running fashion followed by Doll splints inserted bilaterall y after coating with antibiotic ointment into bilateral nasal cavities and then securing at the cauda l septum with 3-0 Ethilon suture. A mustache dressing was placed. She tolerated the procedure well, will be discharged home on antibiotic and analgesic medication, and will follow up in 1-2 weeks or s ooner if needed. JUAN CARLOS/OSMAR Voice ID: [id number] Report ID: [id number]
== END 2021-11-06 15:44 | disposition home or self-care (01) ==
LOC: OR 09:24
PROVIDERS: ATTEND Otolaryngology Facial Plastic Surgery
PROC: 099X8ZZ Drainage of Left Sphenoid Sinus, Via Natural or Artificial Opening Endoscopic (ICD-10-PCS; 2021-11-06)
PROC: 099Q8ZZ Drainage of Right Maxillary Sinus, Via Natural or Artificial Opening Endoscopic (ICD-10-PCS; 2021-11-06)
PROC: 099R8ZZ Drainage of Left Maxillary Sinus, Via Natural or Artificial Opening Endoscopic (ICD-10-PCS; 2021-11-06)
PROC: 099S8ZZ Drainage of Right Frontal Sinus, Via Natural or Artificial Opening Endoscopic (ICD-10-PCS; 2021-11-06)
PROC: 09TV8ZZ Resection of Left Ethmoid Sinus, Via Natural or Artificial Opening Endoscopic (ICD-10-PCS; 2021-11-06)
PROC: 09TU8ZZ Resection of Right Ethmoid Sinus, Via Natural or Artificial Opening Endoscopic (ICD-10-PCS; 2021-11-06)
PROC: 09BM8ZZ Excision of Nasal Septum, Via Natural or Artificial Opening Endoscopic (ICD-10-PCS; 2021-11-06)
PROC: 095K8ZZ Destruction of Nasal Mucosa and Soft Tissue, Via Natural or Artificial Opening Endoscopic (ICD-10-PCS; 2021-11-06)
PROC: 099T8ZZ Drainage of Left Frontal Sinus, Via Natural or Artificial Opening Endoscopic (ICD-10-PCS; principal; 2021-11-06 11:00)
PROC: 099W8ZZ Drainage of Right Sphenoid Sinus, Via Natural or Artificial Opening Endoscopic (ICD-10-PCS; 2021-11-06 11:00)
DX: J32.4 Chronic pansinusitis (principal); J34.2 Deviated nasal septum; J34.89 Other specified disorders of nose and nasal sinuses; H81.12 Benign paroxysmal vertigo, left ear; Z20.822 Contact with and (suspected) exposure to COVID-19
CPT/HCPCS: 31298; 31295; 31254; 30520; 30999; 88300; U0003; J0360; J2704; J2310; J2720; J2250; J3010 ×2; J1100; J1170; J7120 ×2; J7050 ×2; J7040; J2405